=== PATIENT | male | born 1995 | race Two or more races ===

== ENCOUNTER 2025-04-01 16:11 | Emergency (ER) | payer MEDICAID, OTHER ==
[~2025-04-01] VITALS: Ht 182.9 cm; Wt 113.0 kg
--- NOTE | 2025-04-01 18:15 | ED.PDOC ---
Musculoskeletal HPI Comments 29-year-old male with no pertinent medical history here today with complaints of left knee pain. Patient states that he was walking and twisted his ankle and felt a pop in his knee prior to arrival today. No ankle pain at all, patient states the pain is only in his knee. No swelling, numbness, weakness. No fevers, chills, nausea, vomiting, or diarrhea. No other trauma. No head or neck pain. No open wounds. No other pain or symptoms. No prior injuries to this knee. Chief Complaint: Lower Extremity Time Seen by MD: 18:00 Primary Care Provider: [facility] Reviewed Notes: Nurses Notes Allergies: Coded Allergies: NO KNOWN ALLERGIES (Unverified , 04/01/25) Mode of Arrival: Wheelchair Past Medical History PAST MEDICAL HISTORY: Denies All Other Systems: Reviewed and Negative (Negative except as per HPI) Physical Exam General Appearance: No Apparent Distress, Normal HEENT: Normal ENT Inspection, Pharynx Normal, TMs Normal Neck: Full Range of Motion, Non-Tender, Normal, Normal Inspection Respiratory: Chest Non-Tender, Lungs Clear, No Accessory Muscle Use, No Respiratory Distress, Normal Breath Sounds Cardiovascular: No Edema, No JVD, No Murmur, No Gallop, Normal Peripheral Pulses, Regular Rate/Rhythm Breast Exam: Deferred Gastrointestinal: No Organomegaly, Non Tender, No Pulsatile Mass, Normal Bowel Sounds, Soft Genitalia: Deferred Pelvic: Deferred Rectal: Deferred Extremities: No calf tenderness, Normal capillary refill, Normal inspection, Normal range of motion, No pedal edema, Other (Minimal diffuse tenderness to palpation to the left knee, minimal swelling, no open wounds, no ecchymosis, 2+ DP pulse, sensation intact to light touch throughout, compartment soft, full range of motion of the toes, ankle, knee, and hip although patient does experience pain with range of motion of the knee, able to ambulate with mild limp) Musculoskeletal : Apperance: Normal Neurologic: Alert, optical glass etcher II-XII nml as Tested, No Motor Deficits, Normal Affect, Normal Mood, No Sensory Deficits Cerebellar Function: Normal Reflexes: Normal Skin: Dry, Normal Color, Warm Lymphatic: No Adenopathy Was a procedure done? Was a procedure done?: No Differential Diagnosis EXT Differential Diagnosis: Other Other Differential Diagnosis fracture, dislocation, meniscus/ligamentous injury, septic joint, open fracture X-Ray, Labs, Meds, VS Vital Signs Date Time Temp Pulse Resp B/P (MAP) Pulse Ox O2 Delivery O2 Flow Rate FiO2 04/01/25 16:21 98.8 82 16 133/68 (89) 96 98.8 X-Ray, Labs, Meds, VS Comment Patient presents with constellation of symptoms most consistent with a strain/sprain. Vital signs stable, afebrile. Physical exam as above consistent with strain/sprain and without evidence of significant pathology or neurovascular compromise. Based off of the history, physical exam, and workup, I considered but doubt fracture, dislocation, septic joint, open fracture, compartment syndrome, or other significant neurovascular injury. The patient was also informed that the x-ray reading is preliminary and will be reviewed by radiologist at a later time. The patient also understands the possibility of a "hidden fracture," and the importance of following up with their primary care physician within 2-3 days for re-evaluation and for a possible referral to an orthopedist, outpatient MRI to evaluate for ligamentous/meniscal injury, and/or physical therapy. The patient was also instructed on using [id number] medications to help control pain, resting the affected area, using ice/heat packs, and compressing/elevating the area to help with swelling. The patient was instructed to return to emergency department for worsening of symptoms, numbness, weakness, fevers, p.o. intolerance, or any other concerning symptoms. Patient expressed understanding and was discharged home in stable condition in no distress. Images Reviewed?: Images reviewed and evaluated by me Time of 1ST Reevaluation: 19:58 Reevaluation 1ST: Improved Patient Education/Counseling: Diagnosis, Treatment, Prognosis, Need For Follow Up Family Education/Counseling: Diagnosis, Treatment, Prognosis, Need For Follow Up Departure 1 Departure Time of Disposition: 19:58 Impression: Primary Impression: Knee pain Disposition: 01 HOME / SELF CARE / HOMELESS Condition: Stable Discharged With: Significant Other Critical Care Note Critical Care Time?: No Stability Stability form required: No Heart Score Heart Score: Heart Score Response (Comments) Value History N/A 0 EKG N/A 0 Age N/A 0 Risk Factors N/A 0 Troponin N/A 0 Total 0 SOFI DOHERTY MD April 01, 2025 18:15
--- NOTE | 2025-04-01 18:48 | DVH ---
CLINICAL INDICATION: left knee pain TECHNIQUE: 3 radiographic views of the left knee were obtained. Comparison: None FINDINGS/IMPRESSION: There is no evidence of acute fracture or dislocation. The visualized joint space is well maintained. The alignment is anatomical. There is no radiopaque foreign body.
[2025-04-01 20:46] VITALS: BP 127/71; PULSE 68; RESP 16; TEMP 97.5; O2SAT 94
[2025-04-01] MEDS: HYDROcodone-ACET 5/325MG TAB PO ONE (20:52)
[2025-04-01] MEDS: IBUPROFEN 600 MG TAB PO ONE (20:52)
== END 2025-04-01 20:46 | disposition home or self-care (01) ==
LOC: ER 16:11
DX: M25.562 Pain in left knee (principal)
CPT/HCPCS: 73562